=== PATIENT | female | born 1965 | race Caucasian/White ===

== ENCOUNTER 2022-09-27 01:05 | Emergency (ER) | payer OTHER ==
[2022-09-27 01:44] LABS: Urine Blood 1+ (Negative); Urine Glucose 2+ (Negative); Urine Protein Negative (Negative); Urine Specific Gravity <=1.005 (1.005-1.030); Urine pH 5.5 (5.0-7.0)
[2022-09-27] MEDS ORDERED: NA CHLORIDE 0.9% 1,000 ML ONE ×2 (02:04→03:05)
[2022-09-27 02:28] LABS: Urine Bacteria <20 /HPF (<20); Urine RBC 21-50 /HPF (None Seen); Urine Yeast with Hyphae Trace /HPF (None Seen)
[2022-09-27 02:37] LABS: Absolute Lymphocytes (CBC) 2.8 K/uL (0.7-4.9); Hematocrit 41.2 % (36.0-45.0); Lymphocytes % 37.5 % (15.3-44.8); MCV 94.2 fL (80-100); MPV 8.8 fL (7.6-11.3); RBC Red Blood Cell Count 4.38 M/uL (3.86-4.86)
[2022-09-27 02:53] LABS: Albumin 2.9 g/dL (3.4-5.0); Bilirubin Total 0.4 mg/dL (0.2-1.0); Potassium 3.8 mmol/L (3.5-5.1); Protein, Total 7.2 g/dL (6.4-8.2)
[2022-09-27] MEDS ORDERED: INSULIN -REGULAR HUMAN 50 UNIT/0.5 ML ML ONE ×3 (03:05→05:56)
[2022-09-27] MEDS ORDERED: NA CHLORIDE 0.9% 500 ML ONE (05:58)
--- NOTE | 2022-09-27 06:37 | EDPHYS ---
Physician Documentation [facility] Name: Diane Pérez Age: 57 yrs Sex: Female : 1965 Arrival Date: 09/27/2022 Time: 01:09 Bed 13 Private MD: ED Physician Elan Stephens HPI: 09/27 01:43 This 57 yrs old Female presents to ER via EMS with complaints of Vaginal Pain. rt 01:43 The patient presents with Vaginal pain, itching. Onset: The symptoms/episode rt began/occurred 3 week(s) ago. Modifying factors: The symptoms are alleviated by nothing, the symptoms are aggravated by sexual intercourse. Associated signs and symptoms: Pertinent positives: urinary frequency. Severity of symptoms: At their worst the symptoms were moderate. Patient presents to the ED with vaginal pain, itching for about 3 weeks now, for the past week, the patient has had increased urinary frequency with polyuria and polydipsia. Denies other acute complaints at this time, symptoms are moderate in severity, no other aggravating or alleviating factors.. Historical: - Allergies: 01:13 No Known Allergies; bb - Home Meds: 01:13 metformin Oral [Active]; atorvastatin oral [Active]; Hydroxyzine Oral [Active]; bb escitalopram oxalate oral [Active]; - PMHx: 01:13 Diabetes mellitus; bb - Immunization history:: Adult Immunizations unknown. - Social history:: Smoking status: unknown. - Family history:: not pertinent. ROS: 01:43 Positive for vaginal itching, Vaginal pain. rt 01:43 Constitutional: Negative for fever, chills, and weight loss, Eyes: Negative for injury, pain, redness, and discharge, ENT: Negative for injury, pain, and discharge, Cardiovascular: Negative for chest pain, palpitations, and edema, Respiratory: Negative for shortness of breath, cough, wheezing, and pleuritic chest pain, Abdomen/GI: Negative for abdominal pain, nausea, vomiting, diarrhea, and constipation, MS/Extremity: Negative for injury and deformity, Skin: Negative for injury, rash, and discoloration, Neuro: Negative for headache, weakness, numbness, tingling, and seizure, Psych: Negative for depression, anxiety, suicide ideation, homicidal ideation, and hallucinations. 01:43 Endocrine: Positive for polydipsia, polyuria. Exam: 01:43 Constitutional: This is a well developed, well nourished patient who is awake, alert, rt and in no acute distress. Head/Face: Normocephalic, atraumatic. Eyes: Pupils equal round and reactive to light, extra-ocular motions intact. Lids and lashes normal. Conjunctiva and sclera are non-icteric and not injected. Cornea within normal limits. Periorbital areas with no swelling, redness, or edema. Chest/axilla: Normal chest wall appearance and motion. Nontender with no deformity. No lesions are appreciated. Cardiovascular: Regular rate and rhythm with a normal S1 and S2. No gallops, murmurs, or rubs. Normal PMI, no JVD. No pulse deficits. Respiratory: Lungs have equal breath sounds bilaterally, clear to auscultation and percussion. No rales, rhonchi or wheezes noted. No increased work of breathing, no retractions or nasal flaring. Abdomen/GI: Soft, non-tender, with normal bowel sounds. No distension or tympany. No guarding or rebound. No evidence of tenderness throughout. Skin: Warm, dry with normal turgor. Normal color with no rashes, no lesions, and no evidence of cellulitis. MS/ Extremity: Pulses equal, no cyanosis. Neurovascular intact. Full, normal range of motion. Neuro: Awake and alert, GCS 15, oriented to person, place, time, and situation. Cranial nerves II-XII grossly intact. Motor strength 5/5 in all extremities. Sensory grossly intact. Cerebellar exam normal. Normal gait. Psych: Awake, alert, with orientation to person, place and time. Behavior, mood, and affect are within normal limits. 01:43 : Apparent candidal infection to the lower groin, vaginal region, no appreciable discharge.. Vital Signs: 01:11 BP 124 / 80; Pulse 97; Resp 20 S; Temp 98.1; Pulse Ox 95% on R/A; Weight 97.07 kg (R); bb Height 5 ft. 3 in. (160.02 cm) (R); Pain 10/10; 03:10 BP 101 / 74; Pulse 82; Resp 17; Temp 98.2; Pulse Ox 97% ; Pain 0/10; ke1 06:18 BP 102 / 63; Pulse 69; Resp 17; Temp 98; Pulse Ox 99% ; Pain 0/10; ke1 01:11 Body Mass Index 37.91 (97.07 kg, 160.02 cm) bb MDM: 01:29 Patient medically screened. rt 06:36 Differential diagnosis: Candidiasis, hyperglycemia, DKA, UTI. Data reviewed: vital rt signs, nurses notes, lab test result(s). ED course: Patient presents to the ED with vaginal irritation. She has an obvious candidal infection. Of note, she recently was on antibiotics. No evidence of UTI, only showing yeast in her urine. Labs reveal hyperglycemia without other significant lab abnormalities. No evidence of DKA. Patient was given fluids, insulin with improvement of the blood sugar. She is stable for outpatient care with topical antifungals, return precautions discussed.. 09/27 01:37 Order name: CBC with Diff; Complete Time: 02:58 rt 09/27 01:37 Order name: CMP; Complete Time: 02:58 rt 09/27 01:37 Order name: UA MICROSCOPIC; Complete Time: 02:49 rt 09/27 01:45 Order name: Urine Dipstick-Ancillary; Complete Time: 02:49 EDMS 09/27 01:49 Order name: Glucose, Ancillary Testing; Complete Time: 02:49 EDMS 09/27 02:39 Order name: Urine Culture EDMS 09/27 03:22 Order name: Glucose, Ancillary Testing; Complete Time: 04:22 EDMS 09/27 03:57 Order name: Glucose, Ancillary Testing; Complete Time: 04:22 EDMS 09/27 04:53 Order name: Glucose, Ancillary Testing; Complete Time: 05:48 EDMS 09/27 05:45 Order name: Glucose, Ancillary Testing; Complete Time: 05:48 EDMS 09/27 01:37 Order name: Urine Dipstick-Ancillary (obtain specimen); Complete Time: 01:51 rt Administered Medications: 02:05 Drug: NS 0.9% 1000 ml Route: IV; Rate: 1 bolus; Site: right antecubital; ke 02:40 Follow up: IV Status: Completed infusion 03:09 Drug: Insulin Regular Human 10 units {Co-Signature: aa9 (Kathi Cabrera RN).} Route: IVP; Site: right upper arm; 03:40 Follow up: Response: Blood sugar is lowered ke1 03:50 Follow up: Response: Blood sugar is unchanged ke1 03:10 Drug: NS 0.9% 1000 ml Route: IV; Rate: 1 bolus; Site: right antecubital; ke1 03:40 Follow up: IV Status: Completed infusion ke1 04:59 Drug: Insulin Regular Human 10 units {Co-Signature: aa9 (Kathi Cabrera RN).} Route: IVP; ke1 Site: right upper arm; 05:52 Follow up: Response: Blood sugar is lowered ke1 06:00 Drug: Insulin Regular Human 10 units {Co-Signature: aa9 (Kathi Cabrera RN).} Route: ke1 Sub-Q; Site: abdomen; 06:43 Follow up: Response: Blood sugar is lowered ke1 06:00 Drug: NS 0.9% 500 ml Route: IV; Rate: bolus; Site: right antecubital; ke1 06:20 Follow up: IV Status: Completed infusion ke1 Disposition Summary: 09/27/22 06:36 Discharge Ordered Location: Home rt Problem: new rt Symptoms: have improved rt Condition: Stable rt Diagnosis - Hyperglycemia, unspecified rt - Candidiasis of vulva and vagina rt Followup: rt - With: Private Physician - When: 2 - 3 days - Reason: Discharge Instructions: - Discharge Summary Sheet rt - Hyperglycemia rt - Vaginal Yeast Infection, Adult rt Forms: - Medication Reconciliation Form rt - Thank You Letter rt - Antibiotic Education rt - Prescription Opioid Use rt Prescriptions: - Nystatin-Triamcinolone 100,000-0.1 unit/g-% Topical Cream - apply 1 application by TOPICAL route 2 times per day; 1 tube; Refills: 0, rt Product Selection Permitted Signatures: Dispatcher [employer] Jazlyn Agarwal RN RN Tate Ho RN RN ke1 Elan Stephens MD MD rt Kathi Cabrera RN aa9
--- NOTE | 2022-09-27 06:37 | ER ---
Nurse's Notes [facility] Name: Diane Pérez Age: 57 yrs Sex: Female : 1965 Arrival Date: 09/27/2022 Time: 01:09 Bed 13 Private MD: Diagnosis: Hyperglycemia, unspecified;Candidiasis of vulva and vagina Presentation: 09/27 01:11 Chief complaint: EMS states: they were toned out for report of pt c/o vaginal pain with bb urinary frequency BGL on arrival read high. Coronavirus screen: At this time, the client does not indicate any symptoms associated with coronavirus-19. Ebola Screen: No symptoms or risks identified at this time. Initial Sepsis Screen: Does the patient meet any 2 criteria? No. Patient's initial sepsis screen is negative. Does the patient have a suspected source of infection? No. Patient's initial sepsis screen is negative. Risk Assessment: Do you want to hurt yourself or someone else? Patient reports no desire to harm self or others. Onset of symptoms was August 2022. 01:11 Method Of Arrival: EMS: [facility] 01:11 Acuity: DURAN 3 bb Triage Assessment: 02:02 General: Appears in no apparent distress. Behavior is appropriate for age. Pain: ke1 Complains of pain in pelvis Pain currently is 4 out of 10 on a pain scale. at worst was 8 out of 10 on a pain scale. level that patient reports is acceptable is 5 out of 10 on a pain scale. Historical: - Allergies: 01:13 No Known Allergies; bb - Home Meds: 01:13 metformin Oral [Active]; atorvastatin oral [Active]; Hydroxyzine Oral [Active]; bb escitalopram oxalate oral [Active]; - PMHx: 01:13 Diabetes mellitus; bb - Immunization history:: Adult Immunizations unknown. - Social history:: Smoking status: unknown. - Family history:: not pertinent. Screenin:02 Abuse screen: Denies threats or abuse. Nutritional screening: No deficits noted. ke1 Tuberculosis screening: No symptoms or risk factors identified. Fall Risk None identified. Assessment: 02:03 Neuro: Level of Consciousness is awake, alert, Oriented to person, place, time, ke1 situation. Vital Signs: 01:11 BP 124 / 80; Pulse 97; Resp 20 S; Temp 98.1; Pulse Ox 95% on R/A; Weight 97.07 kg (R); bb Height 5 ft. 3 in. (160.02 cm) (R); Pain 10/10; 03:10 BP 101 / 74; Pulse 82; Resp 17; Temp 98.2; Pulse Ox 97% ; Pain 0/10; ke1 06:18 BP 102 / 63; Pulse 69; Resp 17; Temp 98; Pulse Ox 99% ; Pain 0/10; ke1 01:11 Body Mass Index 37.91 (97.07 kg, 160.02 cm) bb ED Course: 01:09 Patient arrived in ED. bb 01:13 Triage completed. bb 01:13 Arm band placed on Patient placed in an exam room, on a stretcher, on pulse oximetry. bb 01:14 Elan Stephens MD is Attending Physician. rt 01:22 Tate Julien RN is Primary Nurse. ke1 01:[address] Stephens as he did a vaginal exam. mw2 02:01 Inserted saline lock: 20 gauge in right antecubital area, using aseptic technique. ke1 02:01 UA MICROSCOPIC Sent. ke1 02:01 CBC with Diff Sent. ke1 02:01 CMP Sent. ke1 02:03 Bed in low position. Call light in reach. ke1 06:42 No provider procedures requiring assistance completed. IV discontinued. ke1 Administered Medications: 02:05 Drug: NS 0.9% 1000 ml Route: IV; Rate: 1 bolus; Site: right antecubital; ke1 02:40 Follow up: IV Status: Completed infusion ke1 03:09 Drug: Insulin Regular Human 10 units {Co-Signature: aa9 (Kathi Cabrera RN).} Route: IVP; ke1 Site: right upper arm; 03:40 Follow up: Response: Blood sugar is lowered ke1 03:50 Follow up: Response: Blood sugar is unchanged ke1 03:10 Drug: NS 0.9% 1000 ml Route: IV; Rate: 1 bolus; Site: right antecubital; ke1 03:40 Follow up: IV Status: Completed infusion ke1 04:59 Drug: Insulin Regular Human 10 units {Co-Signature: aa9 (Kathi Cabrera RN).} Route: IVP; ke1 Site: right upper arm; 05:52 Follow up: Response: Blood sugar is lowered ke1 06:00 Drug: Insulin Regular Human 10 units {Co-Signature: aa9 (Kathi Cabrera RN).} Route: ke1 Sub-Q; Site: abdomen; 06:43 Follow up: Response: Blood sugar is lowered ke1 06:00 Drug: NS 0.9% 500 ml Route: IV; Rate: bolus; Site: right antecubital; ke1 06:20 Follow up: IV Status: Completed infusion ke1 Medication: 06:43 VIS not applicable for this client. ke1 Outcome: 06:36 Discharge ordered by . rt 06:42 Discharged to home ambulatory. ke1 06:42 Condition: good 06:42 Discharge instructions given to patient. 06:45 Patient left the ED. ke1 Signatures: Jazlyn Stephens RN RN Mona Bass mw2 Tate Julien RN RN ke1 Elan Stephens MD MD rt Kathi Cabrera RN aa9
[2022-09-27 07:12] VITALS: BP 102/63; TEMP 98; O2SAT 99
== END 2022-09-27 06:45 | disposition home or self-care (01) ==
LOC: ER 01:05
DX: E11.65 Type 2 diabetes mellitus with hyperglycemia (principal); B37.31 Acute candidiasis of vulva and vagina
CPT/HCPCS: 96361; 87088; 85025; 87086; 36415; 82947 ×6; 80053; 96372; 96374; 99284; J1815 ×3; J7040; J7030 ×2; 81003; 81015